=== PATIENT | female | born 1970 | race Caucasian/White ===

== ENCOUNTER 2016-12-07 11:50 | Outpatient (CLI) | payer OTHER | END 2016-12-07 13:25 | LOC: D.MAMMO 11:50 | DX: Z12.31 Encounter for screening mammogram for malignant neoplasm of breast (principal) ==

== ENCOUNTER 2019-12-26 14:00 | Outpatient (CLI) | payer OTHER | END 2019-12-26 23:59 | disposition home or self-care (01) | LOC: D.MAMMO 14:00 | PROVIDERS: ATTEND Family Medicine | DX: Z12.31 Encounter for screening mammogram for malignant neoplasm of breast (principal) ==

== ENCOUNTER 2020-02-19 18:30 | Outpatient (CLI) | payer OTHER | END 2020-02-19 23:59 | disposition home or self-care (01) | LOC: D.MAMMO 18:30 | PROVIDERS: ATTEND Family Medicine | DX: R92.8 Other abnormal and inconclusive findings on diagnostic imaging of breast (principal) ==